=== PATIENT | male | born 1980 | race Caucasian/White ===

== ENCOUNTER → 2020-12-05 17:37 | Outpatient (CLI) | payer BC | END | disposition home or self-care (01) | LOC: D.LABREF 17:37 | PROVIDERS: ATTEND Orthopaedic Surgery | DX: M17.12 Unilateral primary osteoarthritis, left knee (principal) ==

== ENCOUNTER 2021-01-15 05:25 | Outpatient (CLI) | payer BC ==
[2021-01-09 14:24] LABS: BILIRUBIN NEGATIVE (NEGATIVE); KETONE NEGATIVE (NEGATIVE); NITRITE NEGATIVE (NEGATIVE); UROBILINOGEN NORMAL mg/dL (< 2)
[2021-01-09 14:40] LABS: BASOPHILS 0.8 % (0-2); EOSINOPHILS 4.5 % (0-7); HEMATOCRIT 44.6 % (42.0-54.0); HEMOGLOBIN 14.9 g/dL (13.5-17.5); IMMATURE GRANULOCYTES 0.2 % (0-5); LYMPHOCYTE ABS# 3.29 10x3/uL (1.32-3.57); LYMPHOCYTES 37.3 % (15-50); MCH 29.9 pg (26.0-34.0); MCHC 33.4 g/dL (31.0-37.0); MCV 89.6 fL (80.0-100.0); MEAN PLATELET VOLUME 9.4 fL (7.4-10.4); MONOCYTES 10.9 % (2-11); NEUTROPHIL ABS# 4.07 10x3/uL (1.78-5.38); NEUTROPHILS 46.3 % (40-80); PLATELET COUNT 329 10x3/uL (130-400); RBC 4.98 10x6/uL (4.20-6.10); RDW 13.6 % (11.5-14.5); WBC 8.8 10x3/uL (4.8-10.8)
[2021-01-09 14:41] LABS: ANION GAP 13.8 mmol/L (8-16); CALCIUM 9.4 mg/dL (8.5-10.1); CARBON DIOXIDE 28.3 mmol/L (21.0-32.0); CREATININE - SERUM 1.3 mg/dL (0.6-1.3); POTASSIUM - SERUM 4.1 mmol/L (3.5-5.1)
[2021-01-09 14:48] LABS: APTT 25.4 SECONDS (22.8-39.4); INR 0.96 (0.85-1.17); PROTIME 11.8 SECONDS (11.6-15.0)
[~2021-01-15] VITALS: Ht 177.8 cm; Wt 113.6 kg
[~2021-01-15 05:25] MED LIST: ATIVAN1 MG PO; BUSPIRONE HCL30 MG PO; TRAZODONE HCL150 MG PO
[2021-01-15 07:51] VITALS: BP 136/67; Ht 177.8 cm; Wt 113.6 kg
[2021-01-15 08:14] LABS: UDS - AMPHET POSITIVE QUAL (NEGATIVE); UDS - BARB NEGATIVE QUAL (NEGATIVE); UDS - BENZO NEGATIVE QUAL (NEGATIVE); UDS - COCAINE NEGATIVE QUAL (NEGATIVE); UDS - OPIATE NEGATIVE QUAL (NEGATIVE); UDS - PCP NEGATIVE QUAL (NEGATIVE); UDS - THC NEGATIVE QUAL (NEGATIVE)
--- NOTE | 2021-01-15 09:41 | NUR ---
PT SURGERY CANCELLED PER DR GRECO. PT IV REMOVED AT THIS TIME, INTACT, NO REDNESS OR SWELLING NOTED AT SITE. PT STATES THAT HE HAS NO RIDE HOME. PT OFFERED [facility] AND PT ACCEPTS. PT CHANGED BACK INTO CLOTHING AND TAKEN DOWN IN WHEELCHAIR AND PLACED SAFELY IN [facility] CAB.
== END 2021-01-15 09:44 | disposition home or self-care (01) ==
LOC: D.OPS 05:25 → D.SDCHOLD 05:25 → D.OPS 09:44 → D.SDCHOLD 09:44 → EDSTATUS 09:45 → D.SDCHOLD 09:45
PROVIDERS: ATTEND Orthopaedic Surgery
DX: M17.12 Unilateral primary osteoarthritis, left knee (principal)